=== PATIENT | female | born 1985 | race Caucasian/White ===

== ENCOUNTER 2016-09-11 22:55 | Emergency (ER) | payer OTHER ==
[~2016-09-11] VITALS: Ht 154.9 cm; Wt 66.8 kg
[~2016-09-11 22:55] MED LIST: CLARITIN10 MG PO
[2016-09-11 23:00] VITALS: BP 150/87
--- NOTE | 2016-09-11 23:36 | NUR ---
AMBULATED TO ER BED 3
--- NOTE | 2016-09-11 23:42 | NUR ---
Note undone in EDM - 09/11/16 at 2347 by THERESA PT C/O LUQ ABD PAIN X2DAYS, WORSENING TODAY. PT REPORTS NAUSEA BUT DENIES VOMITING AND DIARRHEA. HX: ASTHMA . SKIN IS PINK/WARM/DRY; AAOX4 WITH EVEN AND STEADY GAIT; LUNGS CLEAR BL; HR EVEN AND REGULAR; PT DENIES ANY FEVER, CP, SOB, OR COUGH AT THIS TIME; PATIENT STATES PAIN OF 10/10 AT THIS TIME; VSS; PATIENT POSITIONED FOR COMFORT; HOB ELEVATED; BEDRAILS UP X2; BED DOWN. ER MD MADE AWARE OF PT STATUS.
--- NOTE | 2016-09-11 23:47 | NUR ---
PT C/O LEFT LOWER ABD PAIN THAT RADIATES TO THE BACK X2DAYS, WORSENING TODAY. PT REPORTS NAUSEA BUT DENIES VOMITING AND DIARRHEA. HX: ASTHMA . SKIN IS PINK/WARM/DRY; AAOX4 WITH EVEN AND STEADY GAIT; LUNGS CLEAR BL; HR EVEN AND REGULAR; PT DENIES ANY FEVER, CP, SOB, OR COUGH AT THIS TIME; PATIENT STATES PAIN OF 10/10 AT THIS TIME; VSS; PATIENT POSITIONED FOR COMFORT; HOB ELEVATED; BEDRAILS UP X2; BED DOWN. ER MD MADE AWARE OF PT STATUS.
[2016-09-11] MEDS ORDERED: NACL 0.9% 500 ML IV ONE (23:59)
[2016-09-12] MEDS ORDERED: ONDANSETRON 4 MG/2 ML VIAL IVP ONE
[2016-09-12] MEDS ORDERED: fentaNYL 0.05 MG/ML VIAL IVP ONE
--- NOTE | 2016-09-12 00:28 | NUR ---
PT TO CT VIA WC IN STABLE CONDITION
--- NOTE | 2016-09-12 00:40 | NUR ---
PT RETURNED FROM CT VIA WC IN STABLE CONDITION
[2016-09-12] MEDS ORDERED: cefTRIAXone 1,000 MG VIAL ONE (00:42)
--- NOTE | 2016-09-12 01:08 | NUR ---
MD AT BEDSIDE TO TALK WITH PT
--- NOTE | 2016-09-12 01:23 | NUR ---
Patient discharged with v/s stable. Written and verbal after care instructions given and explained. Patient alert, oriented and verbalized understanding of instructions. Ambulatory with steady gait. All questions addressed prior to discharge. ID band removed. Patient advised to follow up with PMD. Rx of CIPRO, TRAMADOL, given. Patient educated on indication of medication including possible reaction and side effects. Opportunity to ask questions provided and answered.
[2016-09-12 01:25] VITALS: BP 113/71
== END 2016-09-12 01:26 | disposition home or self-care (01) ==
LOC: MED 23:03
DX: N10 Acute pyelonephritis (principal); J45.909 Unspecified asthma, uncomplicated; Z88.6 Allergy status to analgesic agent
CPT/HCPCS: 74176; 81002; 81025; 96365; 96375; 99284; J0696; J2405; J3010; J7030; J7060